=== PATIENT | male | born 1940 | race Caucasian/White ===

== ENCOUNTER 2017-03-21 07:22 | Outpatient (CLI) | payer MEDICARE, BC ==
[2017-03-21] VITALS (15 sets, daily range): BP systolic 119–163; BP diastolic 66–88; PULSE 80; TEMP 97–97.3
[~2017-03-21] VITALS: Ht 172.8 cm; Wt 75.0 kg
[~2017-03-21 07:22] MED LIST: ASPIRIN E.C. 8181 MG PO; LOPRESSOR 550 MG/TAB PO; MSM1000 MG PO; MULTI VITAMINS1 TAB PO; ZOCOR 20MG20 MG PO
[2017-03-21] MEDS ORDERED: LOPRESSOR 225 MG/TAB PO (07:53)
[2017-03-21] MEDS ORDERED: DEMADEX 20MG20 M1 PO (07:54)
[2017-03-21] MEDS ORDERED: COLACE 100100 MG/CAP PO (08:06)
[2017-03-21] MEDS ORDERED: DIGITEK0.25 MG PO (08:07)
[2017-03-21] MEDS ORDERED: PRINIVIL2.5 MG PO (08:07)
[2017-03-21 08:08] LABS: HEMATOCRIT 41.6 % (42.0-52.0); HEMOGLOBIN 14.2 g/dl (13.5-18.0); MEAN CELL VOLUME 91 fl (80.0-100.0); MEAN CORPUSCULAR HEMOGLOBIN 31 pg (27.0-31.0); MEAN CORPUSCULAR HGB CONC 34 g/dl (33.0-37.0); PLATELET COUNT 257 K/mm3 (130-400); RED BLOOD COUNT 4.58 M/mm3 (4.20-5.60); REDCELL DISTRIBUTION WIDTH-CV 12.9 % (11.5-14.5); WHITE BLOOD COUNT 8.2 K/mm3 (4.8-10.8)
[2017-03-21 08:14] LABS: PROTHROMBIN TIME 10.9 SECONDS (9.7-12.8)
[2017-03-21 08:47] LABS: CALCIUM 9.1 mg/dL (8.4-10.2); CREATININE, serum 0.84 mg/dL (0.66-1.25); POTASSIUM 4.2 mmol/L (3.4-5.0)
== END 2017-03-21 12:18 | disposition home or self-care (01) ==
LOC: COL.RAD 07:22
PROVIDERS: Internal Medicine Interventional Cardiology
DX: I08.0 Rheumatic disorders of both mitral and aortic valves (principal); R06.02 Shortness of breath; I11.0 Hypertensive heart disease with heart failure; I50.9 Heart failure, unspecified; Z95.0 Presence of cardiac pacemaker; Z79.899 Other long term (current) drug therapy; Z79.82 Long term (current) use of aspirin; Z95.1 Presence of aortocoronary bypass graft
CPT/HCPCS: J2250; J3010

== ENCOUNTER 2017-12-16 09:57 | Outpatient (CLI) | payer MEDICARE, BC ==
[~2017-12-16] VITALS: Ht 172.7 cm; Wt 70.5 kg
[~2017-12-16 09:57] MED LIST changes: +COLACE 100100 MG/CAP PO; +DEMADEX 20MG20 M1 PO; +DIGITEK0.25 MG PO; +LOPRESSOR 225 MG/TAB PO; +PRINIVIL2.5 MG PO
[2017-12-16 10:11] VITALS: BP 166/80; PULSE 79
[2017-12-16] MEDS ORDERED: NORCO 325 MG-51 TAB PO (10:11)
[2017-12-16] MEDS ORDERED: XARELTO10 MG PO (10:13)
[2017-12-16 12:30] VITALS: BP 165/88; PULSE 76
[2017-12-16 13:00] VITALS: BP 157/86; PULSE 77
[2017-12-16 14:00] VITALS: BP 138/85; PULSE 85
[2017-12-16 14:49] LABS: CREATININE, serum 0.64 mg/dL (0.66-1.25)
[2017-12-16 15:51] VITALS: BP 138/84; PULSE 84
== END 2017-12-16 15:53 | disposition home or self-care (01) ==
LOC: EUO 09:57
PROVIDERS: Internal Medicine Medical Oncology
DX: C25.0 Malignant neoplasm of head of pancreas (principal); C79.89 Secondary malignant neoplasm of other specified sites; C80.1 Malignant (primary) neoplasm, unspecified; I82.210 Acute embolism and thrombosis of superior vena cava; Z95.9 Presence of cardiac and vascular implant and graft, unspecified; Z95.0 Presence of cardiac pacemaker; Z79.01 Long term (current) use of anticoagulants; Z86.718 Personal history of other venous thrombosis and embolism
CPT/HCPCS: C1751; C1894; Q9967

== ENCOUNTER 2017-12-22 13:20 | Inpatient (IN) | payer MEDICARE, BC ==
[~2017-12-22] VITALS: Ht 175.3 cm; Wt 85.8 kg
[2017-12-22] VITALS (7 sets, daily range): BP systolic 97–141; BP diastolic 55–69; PULSE 80–83; TEMP 97.4–98
[~2017-12-22 13:20] MED LIST changes: +NORCO 325 MG-51 TAB PO; +XARELTO10 MG PO
[2017-12-22 16:50] LABS: MEAN CELL VOLUME 92 fl (80.0-100.0); MEAN CORPUSCULAR HGB CONC 34 g/dl (33.0-37.0); MEAN PLATELET VOLUME 9.5 fl (7.4-10.4); PLATELET COUNT 198 K/mm3 (130-400); RED BLOOD COUNT 3.16 M/mm3 (4.20-5.60); REDCELL DISTRIBUTION WIDTH-CV 13.2 % (11.5-14.5)
[2017-12-22 17:01] LABS: ALBUMIN 4.1 gm/dL (3.5-5.0); BILIRUBIN,TOTAL 0.5 mg/dL (0.0-1.0); CALCIUM 9.2 mg/dL (8.4-10.2); CREATININE, serum 0.59 mg/dL (0.66-1.25); MAGNESIUM 2.3 mg/dL (1.6-2.3); POTASSIUM 3.9 mmol/L (3.4-5.0); TOTAL PROTEIN 6.7 gm/dL (6.4-8.2)
[2017-12-22 17:04] LABS: HEMOGLOBIN 9.9 g/dl (13.5-18.0); MEAN CORPUSCULAR HEMOGLOBIN 31 pg (27.0-31.0)
[2017-12-22 17:12] LABS: INR 1.4 (0.8-3.0); PROTHROMBIN TIME 16.3 SECONDS (9.7-12.8)
[2017-12-22 17:15] LABS: PARTIAL THROMBOPLASTIN TIME 30.5 SECONDS (26.0-37.0)
[2017-12-22] MEDS ORDERED: ELIQUIS 5MG PO (17:59)
[2017-12-23] VITALS (7 sets, daily range): BP systolic 81–122; BP diastolic 50–74; PULSE 79–93; TEMP 97.5–98.6
[2017-12-23 14:22] LABS: BASO % 0.5 % (0.0-2.0); EOS # 0.1 (0.0-0.7); EOS % 0.7 % (0-4.0); GRAN # 6.5 (1.4-6.5); GRAN % 79.8 % (42.2-75.2); LYMPH # 0.9 (1.2-3.4); MEAN CELL VOLUME 93 fl (80.0-100.0); MEAN CORPUSCULAR HGB CONC 33 g/dl (33.0-37.0); MEAN PLATELET VOLUME 9.5 fl (7.4-10.4); MONO # 0.6 (0.1-0.6); MONO % 7.6 % (1.7-9.3); PLATELET COUNT 183 K/mm3 (130-400); RED BLOOD COUNT 2.83 M/mm3 (4.20-5.60); REDCELL DISTRIBUTION WIDTH-CV 13.4 % (11.5-14.5)
[2017-12-23 14:23] LABS: HEMATOCRIT 26.4 % (42.0-52.0); HEMOGLOBIN 8.8 g/dl (13.5-18.0); MEAN CORPUSCULAR HEMOGLOBIN 31 pg (27.0-31.0)
[2017-12-23 14:30] LABS: CREATININE, serum 0.64 mg/dL (0.66-1.25); POTASSIUM 4.1 mmol/L (3.4-5.0)
[2017-12-24] VITALS (7 sets, daily range): BP systolic 94–121; BP diastolic 39–67; PULSE 78–84; TEMP 97.4–98.3
[2017-12-24 07:07] LABS: BASO # 0.1 (0.0-0.2); BASO % 0.6 % (0.0-2.0); EOS # 0.2 (0.0-0.7); EOS % 1.9 % (0-4.0); GRAN # 5.9 (1.4-6.5); GRAN % 73.6 % (42.2-75.2); LYMPH # 1.3 (1.2-3.4); LYMPH % 15.7 % (20.0-51.0); MEAN CELL VOLUME 94 fl (80.0-100.0); MEAN CORPUSCULAR HGB CONC 33 g/dl (33.0-37.0); MEAN PLATELET VOLUME 10.2 fl (7.4-10.4); MONO # 0.6 (0.1-0.6); MONO % 7.8 % (1.7-9.3); PLATELET COUNT 208 K/mm3 (130-400); RED BLOOD COUNT 2.63 M/mm3 (4.20-5.60); REDCELL DISTRIBUTION WIDTH-CV 13.5 % (11.5-14.5)
[2017-12-24 07:21] LABS: CALCIUM 8.9 mg/dL (8.4-10.2); CREATININE, serum 0.65 mg/dL (0.66-1.25)
[2017-12-24 07:24] LABS: HEMATOCRIT 24.7 % (42.0-52.0); HEMOGLOBIN 8.2 g/dl (13.5-18.0); MEAN CORPUSCULAR HEMOGLOBIN 31 pg (27.0-31.0)
[2017-12-24 18:57] LABS: HEMATOCRIT 22.7 % (42.0-52.0); HEMOGLOBIN 7.6 g/dl (13.5-18.0)
[2017-12-25 00:11] VITALS: BP 111/52; PULSE 80; TEMP 98
[2017-12-25 05:24] VITALS: BP 135/71; PULSE 82; TEMP 97.4
[2017-12-25 07:21] LABS: BASO % 0.5 % (0.0-2.0); EOS # 0.2 (0.0-0.7); EOS % 2.8 % (0-4.0); GRAN # 6.1 (1.4-6.5); GRAN % 76.1 % (42.2-75.2); LYMPH # 1.1 (1.2-3.4); LYMPH % 13.3 % (20.0-51.0); MEAN CELL VOLUME 95 fl (80.0-100.0); MEAN CORPUSCULAR HGB CONC 33 g/dl (33.0-37.0); MEAN PLATELET VOLUME 9.9 fl (7.4-10.4); MONO # 0.5 (0.1-0.6); MONO % 6.8 % (1.7-9.3); PLATELET COUNT 201 K/mm3 (130-400); RED BLOOD COUNT 2.46 M/mm3 (4.20-5.60); REDCELL DISTRIBUTION WIDTH-CV 13.8 % (11.5-14.5)
[2017-12-25 07:25] LABS: HEMATOCRIT 23.4 % (42.0-52.0); HEMOGLOBIN 7.6 g/dl (13.5-18.0); MEAN CORPUSCULAR HEMOGLOBIN 31 pg (27.0-31.0)
[2017-12-25 07:27] LABS: CALCIUM 8.9 mg/dL (8.4-10.2); CREATININE, serum 0.62 mg/dL (0.66-1.25); POTASSIUM 3.9 mmol/L (3.4-5.0)
[2017-12-25 09:12] VITALS: BP 125/61; PULSE 80
[2017-12-25 12:15] VITALS: BP 112/65; PULSE 81; TEMP 97.7
[2017-12-25 15:06] VITALS: BP 109/48; PULSE 80; TEMP 97.4
[2017-12-25 15:58] LABS: HEMATOCRIT 22.3 % (42.0-52.0); HEMOGLOBIN 7.4 g/dl (13.5-18.0)
[2017-12-25 20:29] VITALS: BP 107/62; PULSE 83; TEMP 97.8
[2017-12-26] VITALS (19 sets, daily range): BP systolic 97–127; BP diastolic 52–67; PULSE 20–90; TEMP 97.5–98.7
[2017-12-26 07:08] LABS: BASO % 0.2 % (0.0-2.0); EOS % 0.4 % (0-4.0); GRAN # 8.3 (1.4-6.5); GRAN % 85.9 % (42.2-75.2); LYMPH # 0.6 (1.2-3.4); LYMPH % 6.6 % (20.0-51.0); MEAN CELL VOLUME 93 fl (80.0-100.0); MEAN CORPUSCULAR HGB CONC 34 g/dl (33.0-37.0); MEAN PLATELET VOLUME 10.1 fl (7.4-10.4); MONO # 0.6 (0.1-0.6); MONO % 6.5 % (1.7-9.3); PLATELET COUNT 191 K/mm3 (130-400); RED BLOOD COUNT 2.28 M/mm3 (4.20-5.60); REDCELL DISTRIBUTION WIDTH-CV 14.1 % (11.5-14.5)
[2017-12-26 07:26] LABS: HEMATOCRIT 21.3 % (42.0-52.0); HEMOGLOBIN 7.2 g/dl (13.5-18.0); MEAN CORPUSCULAR HEMOGLOBIN 32 pg (27.0-31.0)
[2017-12-26 07:35] LABS: CALCIUM 8.4 mg/dL (8.4-10.2); CREATININE, serum 0.55 mg/dL (0.66-1.25); MAGNESIUM 2.5 mg/dL (1.6-2.3); POTASSIUM 3.6 mmol/L (3.4-5.0)
[2017-12-26] MEDS ORDERED: LOVENOX 8080 MG/0.8 SQ ×2 (13:05)
[2017-12-26] MEDS ORDERED: MS CONTIN 115 MG/TAB PO (13:07)
[2017-12-26] MEDS ORDERED: MIRALAX510G PO (13:55)
[2017-12-26] MEDS ORDERED: LACTULOSE10 GM/153 PO (14:01)
[2017-12-26] MEDS ORDERED: PROTONIX 40MG T40 MG PO ×2 (16:35)
[2017-12-27 00:43] LABS: HEMOGLOBIN 8.5 g/dl (13.5-18.0)
[2017-12-27 04:47] VITALS: BP 142/78; PULSE 80; TEMP 98.1
[2017-12-27 07:48] LABS: ALBUMIN 3.2 gm/dL (3.5-5.0); BILIRUBIN,TOTAL 0.6 mg/dL (0.0-1.0); CALCIUM 8.7 mg/dL (8.4-10.2); CREATININE, serum 0.63 mg/dL (0.66-1.25); MAGNESIUM 2.4 mg/dL (1.6-2.3); PHOSPHOROUS 3.2 mg/dL (2.5-4.5); TOTAL PROTEIN 5.8 gm/dL (6.4-8.2)
[2017-12-27 07:53] VITALS: BP 104/54; PULSE 81; TEMP 98.1
[2017-12-27 11:40] VITALS: BP 130/71; PULSE 78; TEMP 98.9
[2017-12-27 16:19] VITALS: BP 129/60; PULSE 80; TEMP 98.7
[2017-12-27 17:23] LABS: BASO % 0.5 % (0.0-2.0); EOS # 0.1 (0.0-0.7); EOS % 1.8 % (0-4.0); GRAN % 76.8 % (42.2-75.2); LYMPH % 12.3 % (20.0-51.0); MEAN CELL VOLUME 93 fl (80.0-100.0); MEAN CORPUSCULAR HGB CONC 33 g/dl (33.0-37.0); MEAN PLATELET VOLUME 9.7 fl (7.4-10.4); MONO # 0.6 (0.1-0.6); MONO % 8.1 % (1.7-9.3); PLATELET COUNT 210 K/mm3 (130-400); REDCELL DISTRIBUTION WIDTH-CV 15.2 % (11.5-14.5)
[2017-12-27 17:24] LABS: HEMATOCRIT 26.1 % (42.0-52.0); HEMOGLOBIN 8.7 g/dl (13.5-18.0); MEAN CORPUSCULAR HEMOGLOBIN 31 pg (27.0-31.0)
[2017-12-27 19:50] VITALS: BP 131/68; PULSE 80; TEMP 97.6
[2017-12-27 23:12] VITALS: BP 148/76; PULSE 80; TEMP 98.1
[2017-12-27 23:13] LABS: HEMATOCRIT 26.2 % (42.0-52.0); HEMOGLOBIN 8.9 g/dl (13.5-18.0)
[2017-12-28 03:19] VITALS: BP 148/73; PULSE 80; TEMP 98.4
[2017-12-28 07:42] LABS: BASO % 0.5 % (0.0-2.0); EOS # 0.2 (0.0-0.7); EOS % 2.1 % (0-4.0); GRAN # 6.3 (1.4-6.5); GRAN % 75.6 % (42.2-75.2); LYMPH % 11.7 % (20.0-51.0); MEAN CELL VOLUME 94 fl (80.0-100.0); MEAN CORPUSCULAR HGB CONC 33 g/dl (33.0-37.0); MEAN PLATELET VOLUME 9.8 fl (7.4-10.4); MONO # 0.8 (0.1-0.6); MONO % 9.7 % (1.7-9.3); PLATELET COUNT 213 K/mm3 (130-400); RED BLOOD COUNT 2.66 M/mm3 (4.20-5.60); REDCELL DISTRIBUTION WIDTH-CV 15.4 % (11.5-14.5)
[2017-12-28 07:48] LABS: HEMATOCRIT 25.1 % (42.0-52.0); HEMOGLOBIN 8.3 g/dl (13.5-18.0); MEAN CORPUSCULAR HEMOGLOBIN 31 pg (27.0-31.0)
[2017-12-28 08:02] LABS: CALCIUM 8.6 mg/dL (8.4-10.2); CREATININE, serum 0.69 mg/dL (0.66-1.25); MAGNESIUM 2.2 mg/dL (1.6-2.3); PHOSPHOROUS 3.3 mg/dL (2.5-4.5)
[2017-12-28 08:17] VITALS: BP 122/79; PULSE 83; TEMP 98.3
[2017-12-28 11:52] VITALS: BP 124/74; PULSE 81; TEMP 97.8
[2017-12-28 12:14] LABS: HEMATOCRIT 24.5 % (42.0-52.0); HEMOGLOBIN 8.1 g/dl (13.5-18.0)
[2017-12-28 16:18] VITALS: BP 122/60; PULSE 81; TEMP 97.5
[2017-12-28 16:18] LABS: HEMATOCRIT 25.9 % (42.0-52.0); HEMOGLOBIN 8.6 g/dl (13.5-18.0)
[2017-12-28 19:48] VITALS: BP 142/70; PULSE 80; TEMP 98
[2017-12-28 20:03] LABS: HEMATOCRIT 25.7 % (42.0-52.0); HEMOGLOBIN 8.5 g/dl (13.5-18.0)
[2017-12-29] VITALS (13 sets, daily range): BP systolic 88–157; BP diastolic 48–85; PULSE 80–106; TEMP 98.5–101.4
[2017-12-29 06:42] LABS: MEAN CELL VOLUME 95 fl (80.0-100.0); MEAN CORPUSCULAR HGB CONC 33 g/dl (33.0-37.0); MEAN PLATELET VOLUME 9.9 fl (7.4-10.4); PLATELET COUNT 216 K/mm3 (130-400); RED BLOOD COUNT 2.69 M/mm3 (4.20-5.60); REDCELL DISTRIBUTION WIDTH-CV 15.3 % (11.5-14.5)
[2017-12-29 06:43] LABS: HEMATOCRIT 25.5 % (42.0-52.0); HEMOGLOBIN 8.3 g/dl (13.5-18.0); MEAN CORPUSCULAR HEMOGLOBIN 31 pg (27.0-31.0)
[2017-12-29 07:07] LABS: CALCIUM 8.6 mg/dL (8.4-10.2); CREATININE, serum 0.65 mg/dL (0.66-1.25); MAGNESIUM 2.1 mg/dL (1.6-2.3); PHOSPHOROUS 3.6 mg/dL (2.5-4.5); POTASSIUM 4.1 mmol/L (3.4-5.0)
[2017-12-29 07:28] LABS: BAND 33 % (0-10); NEUTROPHILS 63 % (42.0-75.2); PLATELET ESTIMATE NORMAL (NORMAL)
[2017-12-30] VITALS (257 sets, daily range): BP systolic 78–123; BP diastolic 40–62; PULSE 80–91; TEMP 97–98.2; O2SAT 90–100
[2017-12-30 04:48] LABS: COLLECTION METHOD CLEAN CATCH
[2017-12-30 04:55] LABS: MUCOUS Present /lpf; PH 5 (5-8); SQUAMOUS EPITHELIAL 0-2 /hpf; URINE APPEARANCE Clear; URINE BACTERIA None Seen /hpf; URINE BILIRUBIN Positive (NEGATIVE); URINE BLOOD Negative (NEGATIVE); URINE COLOR Amber; URINE GLUCOSE Negative (NEGATIVE); URINE KETONE Trace (NEGATIVE); URINE LEUKOCYTE ESTERASE Negative (NEGATIVE); URINE NITRATE Negative (NEGATIVE); URINE PROTEIN(semi-quant) 1+ (NEGATIVE); URINE UROBILINOGEN Negative (NEGATIVE)
[2017-12-30 07:09] LABS: ALBUMIN 2.6 gm/dL (3.5-5.0); BILIRUBIN,TOTAL 0.4 mg/dL (0.0-1.0); CALCIUM 8.4 mg/dL (8.4-10.2); CREATININE, serum 0.87 mg/dL (0.66-1.25); MAGNESIUM 2.3 mg/dL (1.6-2.3); MEAN CELL VOLUME 96 fl (80.0-100.0); MEAN CORPUSCULAR HGB CONC 32 g/dl (33.0-37.0); MEAN PLATELET VOLUME 10.1 fl (7.4-10.4); PLATELET COUNT 220 K/mm3 (130-400); POTASSIUM 4.3 mmol/L (3.4-5.0); RED BLOOD COUNT 2.88 M/mm3 (4.20-5.60); REDCELL DISTRIBUTION WIDTH-CV 15.3 % (11.5-14.5); TOTAL PROTEIN 5.1 gm/dL (6.4-8.2)
[2017-12-30 07:18] LABS: HEMATOCRIT 27.7 % (42.0-52.0); HEMOGLOBIN 8.8 g/dl (13.5-18.0); MEAN CORPUSCULAR HEMOGLOBIN 31 pg (27.0-31.0)
[2017-12-30 08:47] LABS: BAND 46 % (0-10); LYMPHOCYTE 4 % (20.0-51.0); NEUTROPHILS 50 % (42.0-75.2); PLATELET ESTIMATE NORMAL (NORMAL)
[2017-12-30 10:40] LABS: ARTERIAL BLD GAS O2 SATURATION 91.3 % (92-100); ARTERIAL BLD GAS TCO2 CT 25.5; ARTERIAL BLOOD GAS BASE EXCESS 0.4 (-2-2); ARTERIAL BLOOD GAS HCO3 24.4 meq/L (22-26); ARTERIAL BLOOD GAS PCO2 36.5 mmHg (35-45); ARTERIAL BLOOD GAS PO2 65.7 mmHg (80-100); ARTERIAL BLOOD GAS pH 7.44 (7.35-7.45)
[2017-12-31] VITALS (186 sets, daily range): BP systolic 125–143; BP diastolic 68–75; PULSE 76–82; TEMP 97–98; O2SAT 86–98
[2017-12-31 05:23] LABS: ARTERIAL BLD GAS O2 SATURATION 93.9 % (92-100); ARTERIAL BLD GAS TCO2 CT 22.9; ARTERIAL BLOOD GAS BASE EXCESS -1.3 (-2-2); ARTERIAL BLOOD GAS PCO2 31.1 mmHg (35-45); ARTERIAL BLOOD GAS PO2 69.5 mmHg (80-100); ARTERIAL BLOOD GAS pH 7.47 (7.35-7.45)
[2017-12-31 05:59] LABS: BASO % 0.1 % (0.0-2.0); GRAN # 9.8 (1.4-6.5); GRAN % 87.8 % (42.2-75.2); LYMPH # 0.7 (1.2-3.4); LYMPH % 6.1 % (20.0-51.0); MEAN CELL VOLUME 94 fl (80.0-100.0); MEAN CORPUSCULAR HGB CONC 32 g/dl (33.0-37.0); MEAN PLATELET VOLUME 9.5 fl (7.4-10.4); MONO # 0.6 (0.1-0.6); MONO % 5.5 % (1.7-9.3); PLATELET COUNT 214 K/mm3 (130-400); RED BLOOD COUNT 2.76 M/mm3 (4.20-5.60); REDCELL DISTRIBUTION WIDTH-CV 15.1 % (11.5-14.5)
[2017-12-31 06:12] LABS: HEMATOCRIT 25.9 % (42.0-52.0); HEMOGLOBIN 8.4 g/dl (13.5-18.0); MEAN CORPUSCULAR HEMOGLOBIN 30 pg (27.0-31.0); PROTHROMBIN TIME 11.3 SECONDS (9.7-12.8)
[2017-12-31 06:18] LABS: ALBUMIN 2.4 gm/dL (3.5-5.0); BILIRUBIN,TOTAL 0.2 mg/dL (0.0-1.0); CALCIUM 7.9 mg/dL (8.4-10.2); CREATININE, serum 0.58 mg/dL (0.66-1.25); POTASSIUM 4.4 mmol/L (3.4-5.0); TOTAL PROTEIN 4.5 gm/dL (6.4-8.2)
[2018-01-01 00:47] VITALS: BP 136/73; PULSE 82; TEMP 97.5
[2018-01-01 04:27] VITALS: BP 132/67; PULSE 76; TEMP 97.9
[2018-01-01 06:08] LABS: BASO % 0.2 % (0.0-2.0); EOS % 0.1 % (0-4.0); GRAN # 11.5 (1.4-6.5); GRAN % 86.1 % (42.2-75.2); LYMPH % 7.3 % (20.0-51.0); MEAN CELL VOLUME 93 fl (80.0-100.0); MEAN CORPUSCULAR HGB CONC 33 g/dl (33.0-37.0); MEAN PLATELET VOLUME 9.7 fl (7.4-10.4); MONO # 0.7 (0.1-0.6); MONO % 5.5 % (1.7-9.3); PLATELET COUNT 258 K/mm3 (130-400); RED BLOOD COUNT 3.02 M/mm3 (4.20-5.60); REDCELL DISTRIBUTION WIDTH-CV 14.9 % (11.5-14.5)
[2018-01-01 06:17] LABS: PROTHROMBIN TIME 11.9 SECONDS (9.7-12.8)
[2018-01-01 06:21] LABS: HEMATOCRIT 28.1 % (42.0-52.0); HEMOGLOBIN 9.3 g/dl (13.5-18.0); MEAN CORPUSCULAR HEMOGLOBIN 31 pg (27.0-31.0)
[2018-01-01 06:33] LABS: ALBUMIN 2.8 gm/dL (3.5-5.0); BILIRUBIN,TOTAL 0.3 mg/dL (0.0-1.0); CALCIUM 8.2 mg/dL (8.4-10.2); CREATININE, serum 0.55 mg/dL (0.66-1.25); POTASSIUM 4.3 mmol/L (3.4-5.0); TOTAL PROTEIN 5.5 gm/dL (6.4-8.2)
[2018-01-01 07:56] VITALS: BP 153/77; PULSE 80; TEMP 97.9
[2018-01-01] MEDS ORDERED: ROXANOL 20MG20 MG/ML SL (14:34)
[2018-01-01] MEDS ORDERED: HALDOL 1MG T1 MG/TAB PO (14:36)
[2018-01-01] MEDS ORDERED: ATIVAN 0.50.5 MG/TAB PO (14:36)
[2018-01-01] MEDS ORDERED: LIQUIFILM TEARS15 ML OP (14:37)
[2018-01-01] MEDS ORDERED: MIRALAX PA17 GM/Dose PO ×2 (14:38)
[2018-01-01] MEDS ORDERED: TRANSDERM-0.5 MG/21 TD (14:38)
[2018-01-01] MEDS ORDERED: NORCO 325 MG-51 TAB PO (15:39)
== END 2018-01-01 16:36 | disposition hospice, home (50) | DRG 374 ==
LOC: COL.VAS 13:20 → MEDICAL 16:18 → ICU 12-30 11:00 → PEDS 12-31 18:30 → ICU 12-31 18:30 → PEDS 01-01 16:36
PROVIDERS: Internal Medicine; Nurse Practitioner Family; Physician Assistant; Surgery
PROC: 06H033Z Insertion of Infusion Device into Inferior Vena Cava, Percutaneous Approach (ICD-10-PCS; 2017-12-24)
PROC: B5191ZA Fluoroscopy of Inferior Vena Cava using Low Osmolar Contrast, Guidance (ICD-10-PCS; 2017-12-24)
PROC: 0JH Subcutaneous Tissue and Fascia, Insertion (ICD-10-PCS; principal; 2017-12-24 14:00)
PROC: 0DJ08ZZ Inspection of Upper Intestinal Tract, Via Natural or Artificial Opening Endoscopic (ICD-10-PCS; 2017-12-29)
DX: C78.89 Secondary malignant neoplasm of other digestive organs (principal); A41.81 Sepsis due to Enterococcus; R65.21 Severe sepsis with septic shock; Z51.5 Encounter for palliative care; Z66 Do not resuscitate; I82.A2 Chronic embolism and thrombosis of axillary vein; D62 Acute posthemorrhagic anemia; K92.1 Melena; J90 Pleural effusion, not elsewhere classified; I23.6 Thrombosis of atrium, auricular appendage, and ventricle as current complications following acute myocardial infarction; E87.1 Hypo-osmolality and hyponatremia; E44.0 Moderate protein-calorie malnutrition; C77.0 Secondary and unspecified malignant neoplasm of lymph nodes of head, face and neck; C80.1 Malignant (primary) neoplasm, unspecified; C78.5 Secondary malignant neoplasm of large intestine and rectum; I10 Essential (primary) hypertension; Z95.2 Presence of prosthetic heart valve; Z87.891 Personal history of nicotine dependence; Z95.0 Presence of cardiac pacemaker; Z85.828 Personal history of other malignant neoplasm of skin; Z79.01 Long term (current) use of anticoagulants; I25.10 Atherosclerotic heart disease of native coronary artery without angina pectoris
CPT/HCPCS: 99232-AI; 99233-AI; 99239; C1788; C9113; G0378; J0690; J0692; J1644; J1650; J1720; J1885; J2060; J2250; J2270; J2405; J2704; J3010; J3370; J7030; J7040; J7050; J7120; P9016; Q9967